=== PATIENT | female | born 1975 | race Two or more races ===

== ENCOUNTER 2023-11-29 15:07 | Emergency (ER) | payer MEDICAID, OTHER ==
[~2023-11-29] VITALS: Ht 157.5 cm; Wt 74.2 kg
[2023-11-29] MEDS ORDERED: CEPH500C PO (16:01)
[2023-11-29 16:52] VITALS: BP 125/78; TEMP 98.1
[2023-11-29 16:56] VITALS: PULSE 63; RESP 17; O2SAT 97
== END 2023-11-29 16:58 | disposition home or self-care (01) ==
LOC: ER 15:07
DX: S61.211A Laceration without foreign body of left index finger without damage to nail, initial encounter (principal); X58.XXXA Exposure to other specified factors, initial encounter; Y93.89 Activity, other specified; Y92.89 Other specified places as the place of occurrence of the external cause; Y99.8 Other external cause status

== ENCOUNTER 2023-12-03 22:17 | Emergency (ER) | payer MEDICAID ==
[~2023-12-03] VITALS: Ht 157.5 cm; Wt 75.0 kg
[~2023-12-03 22:17] MED LIST: CEPH500C PO
[2023-12-04] MEDS ORDERED: KETOROLAC TROMETH 30 MG/ML 1ML VIAL IM ONE (00:30)
[2023-12-04 01:19] LABS: Basophils # (auto) 0 10 ^3/uL (0-0.2); Basophils % (auto) 0.3 % (0.0-2.0); Eosinophils # (auto) 0.1 10 ^3/uL (0-0.8); Eosinophils % (auto) 1.9 % (0.0-7.0); Hemoglobin 12.4 g/dL (12.2-16.2); Lymphocytes % (auto) 27.9 % (10.0-50.0); Mean Corpuscular Hemoglobin 29.5 pg (28.0-32.0); Mean Corpuscular Hgb Conc. 33.5 g/dL (32.0-36.0); Monocytes # (auto) 0.7 10 ^3/uL (0-1.3); Neutrophils # (auto) 4.4 10 ^3/uL (1.6-8.6); Neutrophils % (auto) 60.9 % (37.0-80.0); Red Blood Cells 4.21 10^6/uL (4.0-5.20); White Blood Cell 7.2 10^3/uL (4.4-10.8)
[2023-12-04 02:19] LABS: Erythrocyte Sedimentation Rate 9 mm/hr (0-20)
[2023-12-04] MEDS ORDERED: BACDST PO (03:09)
[2023-12-04 03:35] VITALS: BP 108/54; PULSE 77; RESP 16; TEMP 98; O2SAT 98
[2023-12-04] MEDS: cefTRIAXone SOD 1,000 MG VL IM ONE ×2 (03:40→03:42)
== END 2023-12-04 03:35 | disposition home or self-care (01) ==
LOC: ER 22:17
DX: S61.211D Laceration without foreign body of left index finger without damage to nail, subsequent encounter (principal); L08.9 Local infection of the skin and subcutaneous tissue, unspecified; Z79.899 Other long term (current) drug therapy; X58.XXXD Exposure to other specified factors, subsequent encounter
CPT/HCPCS: 36415; 73140; 85025; 85652; 96372; 99284; J0696; J1885